=== PATIENT | female | born 1975 | race Two or more races ===

== ENCOUNTER 2016-12-05 17:40 | Emergency (ER) | payer MEDICAID ==
[2016-12-05 18:48] LABS: HCG,QUALITATIVE URINE POSITIVE
[2016-12-05 18:53] LABS: SPECIFIC GRAVITY 1.025 (1.001-1.030); URINE BILIRUBIN NEGATIVE (NEGATIVE); URINE BLOOD 4+ (NEGATIVE); URINE GLUCOSE (UA) NEGATIVE (NEGATIVE); URINE LEUKOCYTE ESTERASE TRACE (NEGATIVE); URINE NITRITE NEGATIVE (NEGATIVE); URINE PROTEIN TRACE (NEGATIVE)
[2016-12-05 18:54] LABS: URINE APPEARANCE SL CLOUDY; URINE COLOR YELLOW; URINE UROBILINOGEN 4 mg/dL (0-1 mg/dl)
[2016-12-05 18:55] LABS: URINE AMORPHOUS SEDIMENT MODERATE; URINE BACTERIA 1+; URINE MUCUS 2+
[2016-12-05 19:51] LABS: ABSOLUTE NEUTROPHIL COUNT 4.7 K/mm3 (1.8-7.7); BASO % 0.1 % (0.2-1.0); EOS % 0.4 % (0.9-2.9); HEMOGLOBIN 11.3 gm/l (12.0-16.0); IMM NEUT% 0.3 % (0-1); LYMPH # 2.4 (1.0-4.8); LYMPH % 31.2 % (15-45); MEAN CELL VOLUME 84.6 fl (81.0-99.0); MEAN CORPUSCULAR HGB CONC 34.2 g/dl (33.0-37.0); MEAN PLATELET VOLUME 11.1 fl (7.4-10.4); MONO # 0.5 (0.0-0.8); MONO % 6.8 % (4-12); NEUT % 61.2 % (43-75); PLATELET COUNT 138 K/mm3 (130-400); RED CELL DISTRIBUTION WIDTH 12.5 % (11.5-14.5)
--- NOTE | 2016-12-05 20:39 | US ---
Name: MICHAEL SMITH Exam: Obstetrical ultrasound Comparison: None Clinical history: Pain. Positive test. Findings: Transabdominal and endovaginal imaging of the pelvis was performed. Limited visualization bladder shows no suspicious abnormality. Uterus is normal size. There is a single living intrauterine gestation at 6 weeks 5 days by crown-rump length yielding an estimated date of delivery of 07/26/2017. Heart rate is 122 beats per minute. Yolk sac is identified. Gestational fluid volume is normal. Inferior and to the left, there is a 2.5 x 3.0 x 1.4 cm perigestational hemorrhage. Right ovary measures 3.9 x 2.6 x 2.5 cm and left measures 3.1 x 1.3 x 1.3 cm. There is a 2.8 x 2.1 x 1.9 cm right corpus luteum cyst. Impression: 1. Single living intrauterine gestation 6 weeks 5 days yielding an estimated date of delivery of 07/26/2017 2. Findings at with a 3.0 x 2.5 x 1.4 cm left inferior perigestational hemorrhage 3. 2.8 cm right corpus luteum cyst 4. No suspicious free fluid Note: The above report was uploaded to [facility]'s electronic medical records system at 2035 hours.
[2016-12-06 14:29] LABS: CHLAMYDIA BD Negative (Negative); N.GONORRHOEAE BD Negative (Negative); SOURCE Urine (())
== END 2016-12-05 21:00 | disposition home or self-care (01) ==
LOC: ED 17:40
DX: O20.0 Threatened abortion (principal); Z3A.00 Weeks of gestation of pregnancy not specified

== ENCOUNTER 2017-01-15 16:46 | Emergency (ER) | payer MEDICAID ==
[2017-01-15] MEDS ORDERED: ACETAMINOPHEN 500 MG TABLET ONE (17:48)
[2017-01-15] MEDS ORDERED: OXYMETAZOLINE HCL 0.05% 30 SPRAYS/BOT NS ONE (17:49)
== END 2017-01-15 19:06 | disposition home or self-care (01) ==
LOC: ED 16:46
DX: O99.511 Diseases of the respiratory system complicating pregnancy, first trimester (principal); J06.9 Acute upper respiratory infection, unspecified; Z3A.14 14 weeks gestation of pregnancy
CPT/HCPCS: 87880; 87804; 99283 ×2; A9270 ×2

== ENCOUNTER 2017-03-03 21:47 | Emergency (ER) | payer MEDICAID ==
[2017-03-04] MEDS ORDERED: ONDANSETRON 4 MG ODT TAB ONE (00:57)
[2017-03-04] MEDS ORDERED: MAALOX/LIDO2%VISC/SIMETHICONE 40 ML BOT ONE (00:57)
[2017-03-04 01:27] LABS: ABSOLUTE NEUTROPHIL COUNT 6.1 K/mm3 (1.8-7.7); BASO % 0.2 % (0.2-1.0); EOS # 0.3 (0.0-0.5); EOS % 3.4 % (0.9-2.9); HEMATOCRIT 30.4 % (37.0-47.0); HEMOGLOBIN 10.1 gm/l (12.0-16.0); IMM NEUT% 0.4 % (0-1); LYMPH # 2.1 (1.0-4.8); LYMPH % 22.9 % (15-45); MEAN CELL VOLUME 87.4 fl (81.0-99.0); MEAN CORPUSCULAR HGB CONC 33.2 g/dl (33.0-37.0); MEAN PLATELET VOLUME 10.6 fl (7.4-10.4); MONO # 0.6 (0.0-0.8); MONO % 6.4 % (4-12); NEUT % 66.7 % (43-75); PLATELET COUNT 149 K/mm3 (130-400)
[2017-03-04 01:29] LABS: HCG,QUALITATIVE URINE POSITIVE; URINE APPEARANCE TURBID; URINE BILIRUBIN NEGATIVE (NEGATIVE); URINE BLOOD 3+ (NEGATIVE); URINE COLOR YELLOW; URINE GLUCOSE (UA) NEGATIVE (NEGATIVE); URINE LEUKOCYTE ESTERASE NEGATIVE (NEGATIVE); URINE NITRITE NEGATIVE (NEGATIVE); URINE PROTEIN NEGATIVE (NEGATIVE); URINE UROBILINOGEN NORMAL (0-1 mg/dl)
[2017-03-04 01:29] LABS: ALB/GLOB RATIO 1.1 (>1.0); ALBUMIN 3.3 gm/dL (3.5-5.7); CALCIUM 8.7 mg/dL (8.6-10.3)
[2017-03-04 01:44] LABS: URINE AMORPHOUS SEDIMENT 2+ PHOSPHATES; URINE BACTERIA 0
--- NOTE | 2017-03-04 07:54 | US ---
ABDOMINAL-LIMITED: 03/04/2017 1:59 AM CLINICAL HISTORY: Right upper quadrant pain. Patient is .. STUDY: Limited right upper quadrant ultrasound COMPARISON: none FINDINGS: Gallbladder: Wall thickness: Normal Cholelithiasis: none Pericholecystic Fluid: none Sonographic Mcintyre's Sign: negative Bile ducts: Common bile duct measures 3 mm. Limited visualized Liver and RUQ structures: normal Incidental note is made of heart tones of 147 bpm. survey is not performed at this time. IMPRESSION: No cholelithiasis or evidence of acute cholecystitis. Close clinical and radiographic follow-up are recommended. Preliminary report was provided by [email or web address] at approximately 0331 hours on 03/04/2017.
== END 2017-03-04 03:49 | disposition home or self-care (01) ==
LOC: ED 21:47
DX: O26.892 Other specified pregnancy related conditions, second trimester (principal); R10.9 Unspecified abdominal pain; Z3A.18 18 weeks gestation of pregnancy
CPT/HCPCS: 81025; 85025; 80053; 81001; 76705; 99283 ×2; A9270